=== PATIENT | female | born 1945 | race Caucasian/White ===

== ENCOUNTER 2016-05-18 07:50 | Day surgery (SDC) | payer OTHER ==
--- NOTE | ~2016-05-18 | CN ---
Consultation Report [facility] [address] [place]. [address] NAME: JHON DIAL : 41 STATUS : REG [facility]#: [id number] AGE: 70 ADM/REG DATE : 05/18/16 MR#: [id number] REPORT SERV DATE: 05/18/16 DICTATED BY: ALEJANDRO DOMINIQUE DATE: 05/18/16 REPORT STATUS : Draft TRANSCRIBED BY: MODOdell DATE: 05/18/16 CONSULTATION DATE OF CONSULTATION: Dear Dr. Jose Cheek and Sigrid Pedroza, ANTHROPOLOGY AND ARCHEOLOGY INSTRUCTOR: Thank you for requesting my opinion regarding the evaluation and management of Ms Dial's left upper lobe lung mass and mediastinal lymphadenopathy. Ms Dail is a pleasant 70-year old female with a significant past medical history of clinical COPD, asthma, degenerative disk disease, and chronic back pain, who developed worsening shortness of breath and exertion with fever. She was treated for a pneumonia, and chest x-ray demonstrated a right upper lobe consolidation. She developed recurrent symptoms and subsequent CT scan of the chest on 05/04/2016 confirmed a 4.6 x 4.0 x 4.5 cm right upper lobe lung mass abutting the pleural surface with local regional mediastinal lymphadenopathy. There were also two low- density lesions in the liver. They were too small to characterize. The patient states that she does have improved shortness of breath since treatment. She characterizes as moderate in nature, well-localized to the chest, nonradiating with no significant alleviating or exacerbating factors. She cannot walk up a flight of stairs, and she also finds it difficult to walk on flat ground for more than a 100 feet. 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 She states that she has chronic back pain, and sees pain management. She also gets injections for the pain. REVIEW OF SYSTEMS: A detailed 14-point review of systems was completed. Pertinent positives and negatives are listed above. PAST MEDICAL HISTORY: 1. Anxiety. 2. Arthritis. 3. Asthma. 4. Chronic pain. 5. Degenerative disk disease. 6. Depression. 7. GERD. 8. Hyperlipidemia. 9. Hypertension. 10.Pneumonia in 2017. PAST SURGICAL HISTORY: 1. Hysterectomy. 2. Bilateral knee surgery. 3. Bilateral carpal tunnel surgery. Consultation Report [facility] [address] [place]. [address] NAME: JHON DIAL : 41 STATUS : REG [facility] PAT#: [id number] AGE: 70 ADM/REG DATE : 05/18/16 MR#: [id number] REPORT SERV DATE: 05/18/16 DICTATED BY: ALEJANDRO DOMINIQUE DATE: 05/18/16 REPORT STATUS : Draft TRANSCRIBED BY: ANNE DATE: 05/18/16 4. Hernia repair. 5. Bone spur removal. ALLERGIES: AUGMENTIN. HOME MEDICATIONS: Reviewed and located in the paper chart. SOCIAL HISTORY: The patient is and she is a marine mammal trainer. She quit smoking 25 years ago, but smoked one pack per day for 20 years. She also quit drinking 10 years ago. She denies any current alcohol or illicit drug abuse. FAMILY HISTORY: Ovarian carcinoma, diabetes, congestive heart failure, prostate cancer, emphysema, asthma, hypertension, and thyroid disease. PHYSICAL EXAMINATION: VITAL SIGNS: Weight 189 pounds, height 4 feet 11 inches, blood pressure 117/63, pulse of 52, respiratory rate of 20, 92% on room air, and temperature of 98. GENERAL: In no acute distress. Able to communicate in full paragraphs at a time HEENT: Normocephalic, atraumatic. Pupils are equal, round, and reactive to light and accommodation. Posterior oropharynx is clear. NECK: No JVD. No LAD. Trachea midline. CARDIOVASCULAR: Regular rate and rhythm. S1, S2 present. LUNGS: Coarse bilateral breath sounds. No end-expiratory wheezes noted. ABDOMEN: Nontender. Nondistended. Soft. Positive bowel sounds. EXTREMITIES: No clubbing, cyanosis, or edema. SKIN: No new rashes, lesions, or ulcers. PSYCHIATRIC: Alert and oriented x3. No suicidal thoughts, intents, or plans were discussed. DIAGNOSTIC DATA: This CT scan performed at [facility] was personally reviewed by me and I agree with the following interpretation. Scan was performed on 05/04/2016. 1. 4.6 x 4.0 x 4.5 cm right upper lobe lung mass abutting the lateral pleural surface most likely representing a primary carcinoma of the lung. Smaller satellite lesions are noted along the periphery of the mass and there is also ipsilateral hilar, mediastinal, and subcarinal lymphadenopathy in a local regional distribution. 2. Cardiomegaly with heterogeneity in calcifications. 3. Degenerative changes of the spine and sternoclavicular joints and both glenohumeral joints. 4. Two low-density lesions in the liver which are too small to accurately characterize on this exam. ASSESSMENT AND PLAN: Ms Jhon Dial is an extremely pleasant 70-year-old female with a remote heavy tobacco history, who presents to [facility] with worsening shortness of breath, recurrent pneumonias, large 4.6 well-circumscribed right upper lobe lung mass, and local regional mediastinal lymphadenopathy. She also has associated symptoms of weight loss and poor appetite. The clinical and radiographic presentation are most consistent with Consultation Report [address] [place]. [address] NAME: JHON DIAL : 41 STATUS : REG [facility] PAT#: [id number] AGE: 70 ADM/REG DATE : 05/18/16 MR#: [id number] REPORT SERV DATE: 05/18/16 DICTATED BY: ALEJANDRO DOMINIQUE DATE: 05/18/16 REPORT STATUS : Draft TRANSCRIBED BY: ANNE DATE: 05/18/16 primary bronchogenic carcinoma until proven otherwise. Other potential etiologies include metastatic disease or reactive process. At this point, Ms Dial needs an appropriate diagnostic intervention. We discussed in detail potential options including CT-guided needle biopsy, EBUS bronchoscopy, or thoracic surgical biopsy. Given her significant baseline shortness of breath, frail status, and mediastinal lymph node involvement; EBUS and navigation bronchoscopy are the most appropriate test at this time. The two small liver lesions are difficult to characterize. The patient is aware that EBUS navigation bronchoscopy is associated with potential life- threatening risks including lung collapse, respiratory failure, and even . RECOMMENDATIONS: A summary of my recommendations are as follows: 1. Proceed with EBUS and navigation bronchoscopy. 2. The patient could not tolerate an MRI of the brain with and without contrast due to claustrophobia. She may be amenable to a CT of the head with and without contrast. 3. PET scan has already been ordered. 4. Spiriva and albuterol p.r.n. 5. The patient has been instructed to follow up with Dr. Jose Cheek for further medical workup. If she has local regional disease with no extrathoracic involvement, she may be amenable to chemo and radiation for likely stage IIIA disease. 6. Liquid biopsy for [employer] molecular profile. Thank you for allowing me to participate in Ms Jhon Dial's care. JEAN PAUL/ANNE Alejandro Dominique M.D. / [id number] CC: Janice Faith M.D.
--- NOTE | ~2016-05-18 | EGD ---
EGD REPORT [facility] [address] [address] NAME: JHON DIAL : 41 STATUS : REG [facility]#: [id number] AGE: 70 ADM/REG DATE : 05/18/16 MR#: [id number] REPORT SERV DATE: 05/18/16 DICTATED BY: DEQUAN DOMINIQUE DATE: 05/18/16 REPORT STATUS : Draft TRANSCRIBED BY: [facility] DATE: 05/18/16 Pulmonology Patient Name: Jhon Dial Procedure Date: 05/18/2016 9:53 AM Date of : 1945 Attending MD: BRENDAN DOMINIQUE MD Procedure Date No Time: 05/18/2016 Procedure: EBUS Indications: OSBALDO lung mass with locoregional adenopathy Providers: BRENDAN DOMINIQUE MD Referring MD: Jose Cheek Medicines: Lidocaine 2% 20 mL Complications: No immediate complications Procedure: Pre-Anesthesia Assessment: - A History and Physical has been performed. Patient meds and allergies have been reviewed. The risks and benefits of the procedure and the sedation options and risks were discussed with the patient. All questions were answered and informed consent was obtained. Patient identification and proposed procedure were verified prior to the procedure by the physician and the nurse in the procedure room. Mental Status Examination: alert and oriented. Airway Examination: normal oropharyngeal airway. Respiratory Examination: poor air movement and expiratory wheezes. CV Examination: normal and RRR, no murmurs, no S3 or S4. ASA Grade Assessment: III - A patient with severe systemic disease. After reviewing the risks and benefits, the patient was deemed in satisfactory condition to undergo the procedure. The anesthesia plan was to use general anesthesia. Immediately prior to administration of medications, the patient was re-assessed for adequacy to receive sedatives. The heart rate, respiratory rate, oxygen saturations, blood pressure, adequacy of pulmonary ventilation, and response to care were monitored throughout the procedure. The physical status of the patient was re-assessed after the procedure. After obtaining informed consent, the BF [id number] was introduced through the mouth, via the endotracheal tube (the patient was intubated for the procedure) and advanced to the tracheobronchial tree. the Bronchoscope was introduced through the mouth, via the endotracheal tube (the patient was intubated for the procedure) and advanced to the tracheobronchial tree. The procedure was accomplished without difficulty. The patient EGD REPORT [address] [address] NAME: JHON DIAL : 41 STATUS : REG [facility]#: [id number] AGE: 70 ADM/REG DATE : 05/18/16 MR#: [id number] REPORT SERV DATE: 05/18/16 DICTATED BY: DEQUAN DOMINIQUE DATE: 05/18/16 REPORT STATUS : Draft TRANSCRIBED BY: [employer] DATE: 05/18/16 tolerated the procedure well. Findings: The endotracheal tube is in good position. The visualized portion of the trachea is of normal caliber. The arabella is sharp. The tracheobronchial tree was examined to at least the first subsegmental level. There was an occlusive RUL axillary subsegment lesion obstructing the bronchus. EBUS TBNA of lymph node level 11L x 5 passes for cytology EBUS TBNA of lymph node level 4L x 4 passes for cytology EBUS TBNA of lymph node level 7 x 4 passes for cytology EBUS TBNA of lymph node level 4R x 6 passes for cytology Endobronchial biopsies were performed in the right upper lobe of the lung using a forceps and sent for histopathology examination. Three samples were obtained. Brushings were obtained in the right upper lobe of the lung and sent for routine cytology. One sample was obtained. Bronchoalveolar lavage was performed in the right upper lobe of the lung and sent for routine cytology. 60 mL of fluid were instilled. 20 mL were returned. The return was blood-tinged. There were no mucoid plugs in the return fluid The FiO2 was then lowered to less than 40% and argon plasma coagulation therapy (0.8 L/min) was performed for destruction of tissue and hemostasis. See pictures. Impression: . 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 Positive N2 nodes. Recommendation: - Await test results. - Chest X-ray. - Follow up in clinic. - Follow up with referring physician. Dr. Cheek is aware of the preliminary diagnosis. - Await staging study final results. Patient could not tolerate MRI. Attending Participation: I personally performed the entire procedure. BRENDAN DOMINIQUE MD 05/18/2016 11:27 AM This report has been signed electronically. Number of Addenda: 0 Note Initiated On: 05/18/2016 9:53 AM [address] [address]
[~2016-05-18 07:50] MED LIST: CO Q-10100 MG PO; CYMBALTA60 PO; DEMA20 PO; DILACOR X2 PO; DITROXL5 PO; EFFEXOR100 MG PO; ENDOCET1 TA3 PO; I20 PO; KLONO5 PO; KLOR-CON M2020 MEQ PO; LIPITOR20 PO; LOP25 PO; MEVACOR PO; MOBIC7.5 PO; MULTIVITAMI1 PO; NEUR600 PO; NORCO1 TAB PO; PRILOSEC40 MG PO; PRIN20 PO; PROBIOTIC PO; VENTOLIN HFA INH; VITAMIN B-121000 MC1 SL; VITAMIN D31000 UNIT PO; ZYDONE1 TA2 PO
[2016-05-18 08:09] LABS: BASOPHILS 0.3 %; BASOPHILS ABSOLUTE 0.02 10/3/uL (0.0-0.16); EOSINOPHILS 6.6 %; EOSINOPHILS ABSOLUTE 0.48 10/3/uL (0.0-0.53); HEMATOCRIT 44.6 % (36.0-48.0); IMMATURE GRANULOCYTES 0.1 %; IMMATURE GRANULOCYTES ABSOLUTE 0.01 10/3/uL (0.0-0.11); LYMPHOCYTES 32.1 %; LYMPHOCYTES ABSOLUTE 2.35 10/3/uL (0.67-4.30); MEAN CORPUS HGB CONC 31.4 g/dL (32.0-36.0); MEAN CORPUSCULAR HEMOGLOB 31.9 pg (26.0-34.0); MEAN CORPUSCULAR VOLUME 101.6 fL (80-100); MEAN PLATELET VOLUME 9.1 fL (9.2-13.0); MONOCYTES 10.2 %; MONOCYTES ABSOLUTE 0.75 10/3/uL (0.21-1.20); NEUTROPHILS 50.7 %; NEUTROPHILS ABSOLUTE 3.71 10/3/uL (2.02-8.40); PLATELET COUNT 202 10/3/uL (150-400); RBC DISTRIBUTION WIDTH 12.9 % (12.0-16.0); RED CELL COUNT 4.39 10/6/uL (4.0-5.6); WHITE BLOOD CELLS 7.3 10/3/uL (4.5-10.5)
[2016-05-18 08:10] LABS: MANUAL DIFF NO %
[2016-05-18 08:15] LABS: PROTIME (NOT ORD) 12.9 SEC (12.0-14.5)
[2016-05-18 08:16] LABS: PARTIAL THROMBO TIME 28.8 SEC (22.5-37.2)
[2016-05-18 08:23] LABS: BUN (BLOOD UREA NITROGEN) 14 MG/DL (6-23); CALCIUM, SERUM 9.2 MG/DL (8.5-10.4); CHLORIDE, SERUM 103 MMOL/L (96-112); CO2 (CARBON DIOXIDE) 35 MMOL/L (24-34); CREATININE 0.77 MG/DL (0.55-1.02); GFR AFRICAN AMERICAN 89 ML/MIN (>=60); GFR NON AFRICAN AMERICAN 77 ML/MIN (>=60); GLUCOSE, SERUM 89 MG/DL (60-99); POTASSIUM, SERUM 4.6 MMOL/L (3.5-5.3); SODIUM, SERUM 141 MMOL/L (135-148)
== END 2016-05-18 23:59 | disposition home or self-care (01) ==
LOC: DMU 07:50
PROVIDERS: Anesthesiology; Internal Medicine
PROC: 07974ZX Drainage of Thorax Lymphatic, Percutaneous Endoscopic Approach, Diagnostic (ICD-10-PCS; principal; 2016-05-18 09:30)
PROC: 0BB48ZX Excision of Right Upper Lobe Bronchus, Via Natural or Artificial Opening Endoscopic, Diagnostic (ICD-10-PCS; 2016-05-18 09:30)
PROC: 0B948ZX Drainage of Right Upper Lobe Bronchus, Via Natural or Artificial Opening Endoscopic, Diagnostic (ICD-10-PCS; 2016-05-18 09:30)
DX: C34.11 Malignant neoplasm of upper lobe, right bronchus or lung (principal); C77.1 Secondary and unspecified malignant neoplasm of intrathoracic lymph nodes; I10 Essential (primary) hypertension; E78.00 Pure hypercholesterolemia, unspecified; E78.5 Hyperlipidemia, unspecified; J45.909 Unspecified asthma, uncomplicated; K21.9 Gastro-esophageal reflux disease without esophagitis; M19.90 Unspecified osteoarthritis, unspecified site; Z88.1 Allergy status to other antibiotic agents; Z87.891 Personal history of nicotine dependence; Z79.1 Long term (current) use of non-steroidal anti-inflammatories (NSAID); Z79.899 Other long term (current) drug therapy; Z96.653 Presence of artificial knee joint, bilateral; Z96.1 Presence of intraocular lens; Z98.41 Cataract extraction status, right eye; Z98.42 Cataract extraction status, left eye; Z90.89 Acquired absence of other organs; Z90.710 Acquired absence of both cervix and uterus; Z98.890 Other specified postprocedural states
CPT/HCPCS: 71010; 80048; 85025; 85610; 85730; 88112; 88172; 88173; 88305; 88312; 88341; 88342; 93005; 94640; A9270-GY; C1725; J2405; J2710